=== PATIENT | male | born 1965 | race Caucasian/White ===

== ENCOUNTER 2022-02-21 03:20 | Outpatient (CLI) | payer BC, SELFPAY ==
[2022-02-24 21:40] LABS: Testosterone, Total 308 ng/dL (240-950)
== END 2022-02-21 03:21 | disposition home or self-care (01) ==
LOC: LBO 03:20
PROVIDERS: PCP Family Medicine; Visit Provider Nurse Practitioner Gerontology
DX: R68.82 Decreased libido (principal)
CPT/HCPCS: 36415; 84403

== ENCOUNTER 2022-09-12 09:07 | Outpatient (REF) | payer BC, SELFPAY ==
[2022-09-12 10:00] LABS: ALT 22 U/L (16-63); AST 18 U/L (15-37); Alkaline Phosphatase 83 U/L (46-116); Bilirubin, Direct 0.1 mg/dL (0.0-0.2); Bilirubin, Total 0.6 mg/dL (0.2-1.0); Total Protein 7.6 g/dL (6.4-8.2)
[2022-09-12 17:39] LABS: Estradiol 16 pg/mL (<40)
[2022-09-13 08:38] LABS: PSA, Diagnostic 2.8 ng/mL (<=3.5)
[2022-09-16 13:46] LABS: Testosterone, Total 282 ng/dL (240-950)
== END 2022-09-12 09:08 | disposition home or self-care (01) ==
LOC: LBN 09:07
PROVIDERS: PCP Family Medicine; Visit Provider Urology
DX: E29.1 Testicular hypofunction (principal); R68.82 Decreased libido; R53.83 Other fatigue
CPT/HCPCS: 80076; 84403; 82670; 84153

== ENCOUNTER 2022-09-21 03:13 | Outpatient (CLI) | payer BC, SELFPAY ==
[2022-09-21 12:20] LABS: HCT 44.8 % (40.0-50.0); HGB 14.8 g/dL (13.5-17.5); MCH 30.7 pg (27.0-33.0); MCV 93 fL (80-95); MPV 8.9 fL (8.0-11.0); Platelet Count 185 10^3/uL (130-400); RBC 4.82 10^6/uL (4.36-5.78); RDW 12.4 % (11.8-14.1); WBC 4.61 10^3/uL (4.4-10.8)
== END 2022-09-21 03:14 | disposition home or self-care (01) ==
LOC: LBO 03:13
PROVIDERS: PCP Family Medicine; Visit Provider Urology
DX: E29.1 Testicular hypofunction (principal); R68.82 Decreased libido; R53.83 Other fatigue
CPT/HCPCS: 36415; 85027